=== PATIENT | female | born 2000 | race Caucasian/White ===

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

== ENCOUNTER → 2022-02-13 | Outpatient (REF) | payer OTHER | LOC: M LAB REF 19:57 | PROVIDERS: ATTEND Physician Assistant Medical | DX: R53.83 Other fatigue (principal); R50.9 Fever, unspecified; J02.9 Acute pharyngitis, unspecified ==

== ENCOUNTER → 2022-05-25 | Outpatient (CLI) | payer OTHER ==
[2022-05-25 17:30] LABS: BASO % 0.4 % (0.0-1.0); EOS # 0.1 10^3/uL (0.0-0.5); EOS % 1.1 % (0.0-3.0); HEMATOCRIT 38.4 % (36.0-47.0); LYMPH # 3.4 10^3/uL (1.5-5.0); LYMPH % 41.7 % (24.0-44.0); MEAN CORPUSCULAR HGB CONC 33.9 g/dl (32.0-36.5); MEAN CORPUSCULAR VOLUME 91.6 fl (80.0-96.0); MONO # 0.5 10^3/uL (0.0-0.8); MONO % 5.6 % (2.0-8.0); NEUTROPHILS # 4.1 10^3/uL (1.5-8.5); NEUTROPHILS % 51.1 % (36.0-66.0); PLATELET COUNT, AUTOMATED 311 10^3/uL (150-450); RED BLOOD COUNT 4.19 10^6/uL (4.00-5.40); WHITE BLOOD COUNT 8.1 10^3/uL (4.0-10.0)
[2022-05-25 18:18] LABS: ERYTHROCYTE SEDIMENTATION RATE 14 mm/hr (0-20)
[2022-05-25 18:21] LABS: ALBUMIN 3.7 GM/DL (3.2-5.2); ALT/SGPT 28 U/L (12-78); BILIRUBIN,TOTAL 0.1 MG/DL (0.2-1.0); BLOOD UREA NITROGEN 11 MG/DL (7-18); C REACTIVE PROTEIN QUANTITATIV 0.88 MG/DL (0.00-0.30); CALCIUM LEVEL 9.6 MG/DL (8.5-10.1); CARBON DIOXIDE LEVEL 24 MEQ/L (21-32); CHLORIDE LEVEL 105 MEQ/L (98-107); CREATININE FOR GFR 0.61 MG/DL (0.55-1.30); FERRITIN 49 NG/ML (8-252); FREE T4 0.93 NG/DL (0.78-1.33); GLUCOSE, FASTING 82 MG/DL (70-100); IRON (FE) 42 UG/DL (50-170); MAGNESIUM LEVEL 2.1 MG/DL (1.8-2.4); PERCENT SATURATION 9.9 % (13.2-45.0); POTASSIUM SERUM 3.9 MEQ/L (3.5-5.1); SODIUM LEVEL 137 MEQ/L (136-145); TOTAL IRON BINDING CAPACITY 423 UG/DL (250-450); TOTAL PROTEIN 7.4 GM/DL (6.4-8.2)
[2022-05-25 19:26] LABS: HEMOGLOBIN A1c 5.4 %
[2022-05-25 19:33] LABS: VITAMIN B12 LEVEL 344 PG/ML (247-911)
[2022-05-26 08:59] LABS: TOTAL 25(OH) VITAMIN D 22.2 NG/ML (30.0-100.0)
== END ==
LOC: M PLALAB 16:04
PROVIDERS: ATTEND Family Medicine
DX: R00.2 Palpitations (principal); R53.83 Other fatigue; R63.5 Abnormal weight gain

== ENCOUNTER → 2022-06-26 | Outpatient (CLI) | payer OTHER | LOC: M WUC 12:59 | PROVIDERS: ATTEND Physician Assistant | DX: S63.511A Sprain of carpal joint of right wrist, initial encounter (principal); X58.XXXA Exposure to other specified factors, initial encounter; Y92.9 Unspecified place or not applicable; Y93.9 Activity, unspecified; Y99.9 Unspecified external cause status ==

== ENCOUNTER → 2022-09-22 | Outpatient (REF) | payer OTHER ==
[2022-09-22 18:41] LABS: GC DNA AMPLIFICATION NEGATIVE (NEGATIVE)
== END ==
LOC: M LAB REF 16:07
PROVIDERS: ATTEND Physician Assistant
DX: R30.0 Dysuria (principal)

== ENCOUNTER → 2022-10-31 | Outpatient (REF) | payer OTHER | LOC: M LAB REF 16:02 | PROVIDERS: ATTEND Physician Assistant Medical | DX: R05.9 Cough, unspecified (principal) ==

== ENCOUNTER → 2022-12-11 | Outpatient (REF) | payer OTHER | LOC: M LAB REF 13:05 | PROVIDERS: ATTEND Pediatrics | DX: J02.9 Acute pharyngitis, unspecified (principal) ==

== ENCOUNTER → 2023-04-03 | Outpatient (REF) | payer OTHER | LOC: M PLALAB 13:12 | PROVIDERS: ATTEND Advanced Practice Midwife | DX: Z53.9 Procedure and treatment not carried out, unspecified reason (principal) ==

== ENCOUNTER → 2023-06-28 | Outpatient (CLI) | payer OTHER ==
[2023-06-28 15:31] LABS: BASO % 0.8 % (0.0-1.0); EOS # 0.1 10^3/uL (0.0-0.5); EOS % 2.1 % (0.0-3.0); HEMATOCRIT 43.2 % (36.0-47.0); HEMOGLOBIN 14.1 g/dl (12.0-15.5); LYMPH # 1.9 10^3/uL (1.5-5.0); LYMPH % 36.2 % (24.0-44.0); MEAN CORPUSCULAR HEMOGLOBIN 30.9 pg (27.0-33.0); MEAN CORPUSCULAR HGB CONC 32.6 g/dl (32.0-36.5); MEAN CORPUSCULAR VOLUME 94.7 fl (80.0-96.0); MONO # 0.4 10^3/uL (0.0-0.8); MONO % 7.4 % (2.0-8.0); NEUTROPHILS # 2.8 10^3/uL (1.5-8.5); NEUTROPHILS % 53.3 % (36.0-66.0); PLATELET COUNT, AUTOMATED 297 10^3/uL (150-450); RED BLOOD COUNT 4.56 10^6/uL (4.00-5.40); WHITE BLOOD COUNT 5.3 10^3/uL (4.0-10.0)
[2023-06-28 15:32] LABS: ALBUMIN 4.2 G/DL (3.2-5.2); ALKALINE PHOSPHATASE 49 U/L (46-116); ALT/SGPT 26 U/L (7.0-40); AST/SGOT 15 U/L (<34); BILIRUBIN,TOTAL 0.3 MG/DL (0.3-1.2); BLOOD UREA NITROGEN 13 MG/DL (9-23); CALCIUM LEVEL 9.7 MG/DL (8.5-10.1); CARBON DIOXIDE LEVEL 27 MMOL/L (20-31); CHLORIDE LEVEL 109 MMOL/L (98-107); CREATININE FOR GFR 0.64 MG/DL (0.55-1.30); GLOMERULAR FILTRATION RATE > 60.0 (>60); GLUCOSE, FASTING 83 MG/DL (60-100); POTASSIUM SERUM 4.2 MMOL/L (3.5-5.1); SODIUM LEVEL 143 MMOL/L (136-145); TOTAL IRON BINDING CAPACITY 341 UG/DL (250-425); TOTAL PROTEIN 7.2 G/DL (5.7-8.2)
[2023-06-28 15:33] LABS: IRON (FE) 35 UG/DL (50-170); PERCENT SATURATION 10.3 % (13.2-45.0)
[2023-06-28 15:36] LABS: FERRITIN 26.6 NG/ML (7.3-270.7); THYROID STIMULATING HORMONE 1.123 uIU/ML (0.55-4.78); TOTAL 25(OH) VITAMIN D 27.7 NG/ML (20.0-100.0)
[2023-06-28 15:38] LABS: FREE T4 1.06 NG/DL (0.89-1.76)
[2023-06-28 15:39] LABS: VITAMIN B12 LEVEL 396 PG/ML (211-911)
== END ==
LOC: M PLALAB 10:16
PROVIDERS: ATTEND Nurse Practitioner Adult Health
DX: D64.9 Anemia, unspecified (principal)

== ENCOUNTER 2023-10-09 00:08 | Emergency (ER) | payer OTHER ==
[~2023-10-09] VITALS: Ht 170.2 cm; Wt 80.9 kg
[~2023-10-09 00:08] MED LIST changes: +CEFD1CAP9 PO; -CEFD300C41 PO; +RALTEGRAVIR 400 MG TAB (ISENTRESS) PO SCH; +TRUVADA 200MG/300MG TABLET PO SCH
[2023-10-09 00:15] VITALS: BP 132/87; TEMP 99.6; O2SAT 100
[2023-10-09] MEDS ORDERED: PHEN30CA21 PO (00:21)
[2023-10-09] MEDS ORDERED: EXPOSURE KIT-ADULT 7 DAY SUPPLY PO ONE (00:50)
[2023-10-09] MEDS ORDERED: RALTEGRAVIR 400 MG TAB (ISENTRESS) PO ONE (01:30)
[2023-10-09] MEDS ORDERED: TRUVADA 200MG/300MG TABLET PO ONE (01:30)
[2023-10-09 01:34] LABS: BASO % 0.4 % (0.0-1.0); EOS % 0.4 % (0.0-3.0); HEMATOCRIT 40.7 % (36.0-47.0); HEMOGLOBIN 13.9 g/dl (12.0-15.5); LYMPH # 2.1 10^3/uL (1.5-5.0); LYMPH % 29.8 % (24.0-44.0); MEAN CORPUSCULAR HEMOGLOBIN 31.6 pg (27.0-33.0); MEAN CORPUSCULAR HGB CONC 34.2 g/dl (32.0-36.5); MEAN CORPUSCULAR VOLUME 92.5 fl (80.0-96.0); MONO # 0.3 10^3/uL (0.0-0.8); MONO % 4.5 % (2.0-8.0); NEUTROPHILS # 4.6 10^3/uL (1.5-8.5); NEUTROPHILS % 64.8 % (36.0-66.0); PLATELET COUNT, AUTOMATED 308 10^3/uL (150-450); WHITE BLOOD COUNT 7.1 10^3/uL (4.0-10.0)
[2023-10-09 01:48] LABS: ALBUMIN 3.9 G/DL (3.2-5.2); ALKALINE PHOSPHATASE 50 U/L (46-116); ALT/SGPT 20 U/L (7.0-40); AST/SGOT 10 U/L (<34); BILIRUBIN,TOTAL 0.3 MG/DL (0.3-1.2); BLOOD UREA NITROGEN 15 MG/DL (9-23); CALCIUM LEVEL 9.7 MG/DL (8.5-10.1); CARBON DIOXIDE LEVEL 27 MMOL/L (20-31); CHLORIDE LEVEL 106 MMOL/L (98-107); CREATININE FOR GFR 0.62 MG/DL (0.55-1.30); GLOMERULAR FILTRATION RATE > 60.0 (>60); GLUCOSE, FASTING 117 MG/DL (60-100); POTASSIUM SERUM 3.7 MMOL/L (3.5-5.1); SODIUM LEVEL 140 MMOL/L (136-145); TOTAL PROTEIN 7.5 G/DL (5.7-8.2)
[2023-10-09] MEDS ORDERED: ONDA4TAB6 PO (02:11)
[2023-10-09 02:35] LABS: HCG, SERUM QUALITATIVE NEGATIVE (NEGATIVE)
[2023-10-09 03:59] LABS: HEPATITIS B SURFACE ANTIBODY NEGATIVE (POSITIVE)
[2023-10-09 04:24] LABS: HIV 1&2 SCREEN NEGATIVE (NEGATIVE)
[2023-10-09 04:32] LABS: HEPATITIS C VIRUS ABY INDEX 0.02 INDEX (<0.8)
== END 2023-10-09 02:18 | disposition home or self-care (01) ==
LOC: M ED 00:08
DX: Z77.21 Contact with and (suspected) exposure to potentially hazardous body fluids (principal); Y99.0 Civilian activity done for income or pay; Y93.9 Activity, unspecified; Y92.9 Unspecified place or not applicable; Z88.2 Allergy status to sulfonamides; Z79.899 Other long term (current) drug therapy; Z88.1 Allergy status to other antibiotic agents

== ENCOUNTER → 2024-04-04 | Outpatient (CLI) | payer OTHER ==
[~2024-04-04] MED LIST changes: +ONDA-282 PO; +PHEN30CA21 PO; -RALTEGRAVIR 400 MG TAB (ISENTRESS) PO SCH; -TRUVADA 200MG/300MG TABLET PO SCH
[2024-04-04 14:07] LABS: BASO % 0.5 % (0.0-1.0); EOS # 0.1 10^3/uL (0.0-0.5); EOS % 0.8 % (0.0-3.0); HEMATOCRIT 39.6 % (36.0-47.0); HEMOGLOBIN 13.2 g/dl (12.0-15.5); LYMPH # 1.8 10^3/uL (1.5-5.0); LYMPH % 23.2 % (24.0-44.0); MEAN CORPUSCULAR HEMOGLOBIN 31.3 pg (27.0-33.0); MEAN CORPUSCULAR HGB CONC 33.3 g/dl (32.0-36.5); MEAN CORPUSCULAR VOLUME 93.8 fl (80.0-96.0); MONO # 0.4 10^3/uL (0.0-0.8); MONO % 5.3 % (2.0-8.0); NEUTROPHILS # 5.3 10^3/uL (1.5-8.5); NEUTROPHILS % 70.1 % (36.0-66.0); RED BLOOD COUNT 4.22 10^6/uL (4.00-5.40); WHITE BLOOD COUNT 7.6 10^3/uL (4.0-10.0)
[2024-04-04 14:25] LABS: BLOOD UREA NITROGEN 9 MG/DL (9-23); CALCIUM LEVEL 9.5 MG/DL (8.5-10.1); CARBON DIOXIDE LEVEL 28 MMOL/L (20-31); CHLORIDE LEVEL 106 MMOL/L (98-107); CREATININE FOR GFR 0.56 MG/DL (0.55-1.30); GLOMERULAR FILTRATION RATE > 60.0 (>60); GLUCOSE, FASTING 83 MG/DL (60-100); IRON (FE) 63 UG/DL (50-170); PERCENT SATURATION 17.4 % (13.2-45.0); POTASSIUM SERUM 4.4 MMOL/L (3.5-5.1); SODIUM LEVEL 140 MMOL/L (136-145); TOTAL IRON BINDING CAPACITY 363 UG/DL (250-425)
== END ==
LOC: M PLALAB 10:52
PROVIDERS: ATTEND Nurse Practitioner Adult Health
DX: Z01.818 Encounter for other preprocedural examination (principal); D64.9 Anemia, unspecified

== ENCOUNTER 2024-04-17 05:52 | Observation (INO) | payer OTHER ==
[~2024-04-17] VITALS: Ht 167.6 cm; Wt 81.6 kg
[2024-04-17] MEDS: LR 1,000 ML IV SCH ×2 (07:23→15:39)
[2024-04-17] MEDS ORDERED: MIDAZOLAM INJ 2MG/2ML VIAL As Ordered ONE (07:25)
[2024-04-17] MEDS ORDERED: dexmedeTOMIDine (4MCG/ML)200MCG/50ML BTL (PRECEDEX) As Ordered ONE (07:25)
[2024-04-17] MEDS ORDERED: fentaNYL 250 MCG/5 ML INJECTION As Ordered ONE (07:25)
[2024-04-17] MEDS ORDERED: LIDOCAINE 2% 100MG/5ML SDV (FOR ANES.) As Ordered ONE (07:25)
[2024-04-17] MEDS ORDERED: propofoL 200 MG/20 ML VIAL As Ordered ONE (07:25)
[2024-04-17] MEDS ORDERED: ROCURONIUM BROMIDE 50MG/5ML VIAL As Ordered ONE (07:42)
[2024-04-17] MEDS: HEPARIN SOD (PORCINE) 5000UNITS/ML 1ML VIAL/SYRINGE SQ ONE (07:52)
[2024-04-17] MEDS: ceFAZolin SOD 2 GM in IV 1 EA IV ONE (07:55)
[2024-04-17] MEDS ORDERED: LACRILUBE (AKWA TEARS) OPHTH OINT 3.5GM As Ordered ONE (08:01)
[2024-04-17] MEDS: GENTAMICIN SULF 80MG/2ML VIAL As Ordered ONE (08:15)
[2024-04-17] MEDS ORDERED: ONDANSETRON 4MG 2ML VIAL As Ordered ONE (08:25)
[2024-04-17] MEDS ORDERED: METOCLOPRAMIDE INJ 10MG/2ML VIAL As Ordered ONE (08:32)
[2024-04-17] MEDS ORDERED: PHENYLephrine 500MCG 5ML (100MCG/ML) SYRINGE As Ordered ONE (08:38)
[2024-04-17] MEDS ORDERED: SUGAMMADEX SODIUM 500 MG/5 ML VIAL (BRIDION) As Ordered ONE (08:40)
[2024-04-17] MEDS ORDERED: HYDROmorphone HCL 2MG/ML 1ML VIAL As Ordered ONE (08:40)
[2024-04-17] MEDS ORDERED: ACETAMINOPHEN 1000MG 100ML IV BAG As Ordered ONE (08:40)
[2024-04-17] MEDS ORDERED: ePHEDrine SULFATE 25 MG/5 ML(5MG/ML) SYRINGE As Ordered ONE (08:56)
[2024-04-17] MEDS ORDERED: SEVOFLURANE INHAL SOLN 250 ML BTL As Ordered ONE (08:58)
[2024-04-17] MEDS ORDERED: MORPHINE 2 MG/ML 1ML VIAL IV PRN (11:35)
[2024-04-17] MEDS ORDERED: ACETAMINOPHEN TAB 650MG DOSE (2X325MG) PO PRN (11:45)
[2024-04-17] MEDS: fentaNYL 100 MCG/2 ML INJECTION IV PRN (12:01)
[2024-04-17] MEDS: ONDANSETRON 4MG 2ML VIAL IV PRN ×2 (12:01→16:37)
[2024-04-17] MEDS: oxyCODONE 5MG TAB PO PRN (12:01)
[2024-04-17 14:50] VITALS: BP 98/62; TEMP 98.4; O2SAT 97
[2024-04-17 15:20] VITALS: BP 110/60; TEMP 98.8; O2SAT 98
[2024-04-17] MEDS: traMADol 50 MG TAB PO PRN (15:39)
[2024-04-17 16:30] VITALS: BP 118/88; TEMP 97.9; O2SAT 98
[2024-04-17] MEDS ORDERED: VESTURA PO (16:47)
[2024-04-17] MEDS ORDERED: PHEN37.58 PO (16:47)
[2024-04-17] MEDS ORDERED: THERTAB52 PO (16:47)
[2024-04-17] MEDS ORDERED: HOME MED LIST COMPLETE! XX SCH (16:55)
[2024-04-17] MEDS: ceFAZolin SOD 2 GM in IV 1 EA IV SCH (17:00)
[2024-04-17 17:30] VITALS: BP 114/72; TEMP 97.3; O2SAT 99
[2024-04-17 18:30] VITALS: BP 118/80; TEMP 97.7; O2SAT 98
[2024-04-17] MEDS: PERCOCET 5MG/325MG TAB PO PRN (19:22)
[2024-04-17 22:58] VITALS: BP 102/59; TEMP 98.8; O2SAT 98
[2024-04-18 04:36] VITALS: BP 95/48; TEMP 99; O2SAT 97
[2024-04-18 06:09] VITALS: BP 106/60
[2024-04-18 08:25] VITALS: BP 95/50; TEMP 99; O2SAT 98
[2024-04-18 08:28] VITALS: BP 100/68
[2024-04-18] MEDS ORDERED: PERCOCET PO (11:58)
[2024-04-18 12:21] VITALS: BP 110/70; TEMP 99; O2SAT 98
== END 2024-04-18 13:20 | disposition home or self-care (01) ==
LOC: M SDC 05:52 → M RR INP 05:53 → EEVIPCON 05:53 → M MS5PR 14:20
PROVIDERS: ADMIT Plastic Surgery Surgery of the Hand; ATTEND Plastic Surgery Surgery of the Hand
DX: N62 Hypertrophy of breast (principal); J45.909 Unspecified asthma, uncomplicated; G40.909 Epilepsy, unspecified, not intractable, without status epilepticus; Z88.2 Allergy status to sulfonamides
CPT/HCPCS: 19318; 81025; 88305; 96361; 96365; 96366; 96375; C9290; J0131; J0665; J0690; J1100; J1170; J1580; J2250; J2371; J2405; J2765; J3010

== ENCOUNTER → 2024-04-28 | Outpatient (CLI) | payer OTHER ==
[~2024-04-28] MED LIST changes: +PERCOCET PO; +PHEN37.58 PO; +THERTAB52 PO; +VESTURA PO
[2024-04-28 18:26] LABS: BASO % 0.5 % (0.0-1.0); EOS # 0.1 10^3/uL (0.0-0.5); EOS % 1.4 % (0.0-3.0); HEMOGLOBIN 12.7 g/dl (12.0-15.5); LYMPH # 2.3 10^3/uL (1.5-5.0); LYMPH % 29.8 % (24.0-44.0); MEAN CORPUSCULAR HEMOGLOBIN 31.7 pg (27.0-33.0); MEAN CORPUSCULAR HGB CONC 33.4 g/dl (32.0-36.5); MEAN CORPUSCULAR VOLUME 94.8 fl (80.0-96.0); MONO # 0.5 10^3/uL (0.0-0.8); MONO % 6.9 % (2.0-8.0); NEUTROPHILS # 4.8 10^3/uL (1.5-8.5); NEUTROPHILS % 61.3 % (36.0-66.0); PLATELET COUNT, AUTOMATED 316 10^3/uL (150-450); RED BLOOD COUNT 4.01 10^6/uL (4.00-5.40); WHITE BLOOD COUNT 7.8 10^3/uL (4.0-10.0)
[2024-04-28 18:43] LABS: BLOOD UREA NITROGEN 10 MG/DL (9-23); CALCIUM LEVEL 8.9 MG/DL (8.5-10.1); CARBON DIOXIDE LEVEL 29 MMOL/L (20-31); CHLORIDE LEVEL 105 MMOL/L (98-107); CREATININE FOR GFR 0.68 MG/DL (0.55-1.30); GLOMERULAR FILTRATION RATE > 60.0 (>60); GLUCOSE, FASTING 69 MG/DL (60-100); IRON (FE) 50 UG/DL (50-170); MAGNESIUM LEVEL 1.7 MG/DL (1.8-2.4); POTASSIUM SERUM 4.1 MMOL/L (3.5-5.1); SODIUM LEVEL 139 MMOL/L (136-145); THYROID STIMULATING HORMONE 1.372 uIU/ML (0.55-4.78); TOTAL IRON BINDING CAPACITY 358 UG/DL (250-425)
[2024-04-28 18:44] LABS: FREE T4 1.07 NG/DL (0.89-1.76)
== END ==
LOC: M PLALAB 16:24
PROVIDERS: ATTEND Nurse Practitioner Adult Health
DX: R00.0 Tachycardia, unspecified (principal); R42 Dizziness and giddiness

== ENCOUNTER → 2024-07-15 | Outpatient (REF) | payer OTHER ==
[2024-07-15 21:18] LABS: Trichomonas vaginalis (AMP) NOT DETECTED (NEGATIVE)
[2024-07-15 21:42] LABS: GC DNA AMPLIFICATION NEGATIVE (NEGATIVE)
== END ==
LOC: M SFHCWAGY 17:18
PROVIDERS: ATTEND Nurse Practitioner Family
DX: N73.9 Female pelvic inflammatory disease, unspecified (principal)